=== PATIENT | female | born 1970 ===

== ENCOUNTER 2023-10-13 08:37 | Outpatient (CLI) | payer OTHER | END 2023-10-13 08:40 | disposition home or self-care (01) | LOC: SONOGRAMA 08:37 | PROVIDERS: ATTEND Pathology Anatomic Pathology | DX: D34 Benign neoplasm of thyroid gland (principal); E07.89 Other specified disorders of thyroid; E04.1 Nontoxic single thyroid nodule ==

== ENCOUNTER 2024-12-13 15:04 | Outpatient (CLI) | payer OTHER | END 2024-12-13 15:07 | disposition home or self-care (01) | LOC: SONOGRAMA 15:04 | PROVIDERS: ATTEND Pathology Anatomic Pathology | DX: D34 Benign neoplasm of thyroid gland (principal); E07.89 Other specified disorders of thyroid; E04.1 Nontoxic single thyroid nodule ==